=== PATIENT | female | born 1965 | race Caucasian/White ===

== ENCOUNTER 2017-11-25 10:00 | Outpatient (CLI) | payer OTHER | END 2017-11-25 10:01 | disposition home or self-care (01) | LOC: BICRAD 10:00 | PROVIDERS: ATTEND Internal Medicine | DX: Z02.71 Encounter for disability determination (principal); I51.7 Cardiomegaly; Z96.652 Presence of left artificial knee joint | CPT/HCPCS: 71046 ==

== ENCOUNTER 2019-03-14 04:35 | Inpatient (IN) | payer SELFPAY ==
[2019-03-14] MEDS ORDERED: Clopidogrel Bisulfate 75 MG TAB ONE (05:38)
--- NOTE | 2019-03-14 07:21 | CT ---
CTA CHEST WITH 3D VOLUME RENDERING WITH CONTRAST: CLINICAL HISTORY: A 53-year-old female with acute onset CHF/exacerbation and progressive edema. FINDINGS: No evidence of a significant filling defect of the pulmonary trunk or main pulmonary arteries. Evalu ation of the pulmonary arterial branches, distally, is limited by heterogeneity of contrast bolus due to overlying body wall soft tissues and resultant diminished attenuation of the segmental and subseg mental pulmonary arterial branches, which could obscure small peripheral emboli. There is enlargemen t of the pulmonary trunk and right main pulmonary artery. There is bilateral dependent atelectasis o f the lungs. A noncalcified, 5 mm nodule of the subpleural aspect of the right upper lobe is inciden tally noted. No effusion or pneumothorax. The thoracic aorta is nonaneurysmal. There is evidence o f prior granulomatous disease. The incompletely assessed hyperdensity at the upper abdomen is diffic ult to delineate. This is in the region of the gallbladder fossa and, therefore, could relate to cho lelithiasis, gallbladder wall calcification, or other calcification in this region. Scattered osseou s degenerative changes are present. IMPRESSION: 1. No large, central pulmonary embolus. 2. Incompletely assessed hyperdensity of the upper abdomen, as discussed above. Recommend gallbladd er ultrasound to further characterize. 3. Incidental 5 mm pulmonary nodule, right upper lobe. In the absence of risk factors for malignanc y/metastasis, recommend a 6 to 12 month follow-up CT thorax to confirm size stability. 4. Prominent volume of pulmonary arteries. This can be seen in the setting of pulmonary artery hype rtension. Correlate clinically. CODE LN POS: LUKAS
[2019-03-14] MEDS ORDERED: Calcium Carbonate 500 MG ChewTAB PO PRN (07:48)
[2019-03-14] MEDS ORDERED: Ondansetron PF 4 MG/2 ML Vial IVP PRN (07:48)
[2019-03-14] MEDS ORDERED: Loratadine 10 MG TAB PO PRN (07:48)
[2019-03-14] MEDS ORDERED: Senokot S 8.6-50 MG TAB PO PRN (07:48)
[2019-03-14] MEDS ORDERED: Loperamide HCl 2 MG CAP PO PRN (07:48)
[2019-03-14] MEDS ORDERED: Ondansetron ODT 4 MG TAB PO PRN (07:48)
[2019-03-14] MEDS ORDERED: Cepastat Lozenges 1 LOZ PO PRN (07:48)
[2019-03-14] MEDS ORDERED: Acetaminophen 325 MG TAB PO PRN (07:48)
[2019-03-14] MEDS ORDERED: Bisacodyl 10 MG SUPP PR PRN (07:48)
[2019-03-14] MEDS ORDERED: Diabetic Tussin 200 MG/10 ML UDCUP PO PRN (07:48)
[2019-03-14] MEDS ORDERED: hydrALAZINE 20 MG/ML VIAL SLOW IVP PRN (07:48)
[2019-03-14] MEDS ORDERED: Zolpidem Tartrate 5 MG TAB PO PRN (07:48)
[2019-03-14] MEDS ORDERED: Sodium Chloride 0.65% Nasal 44 ML BOT EA NARE PRN (07:48)
[2019-03-14] MEDS ORDERED: Artificial Tears 18 DROP/0.9 ML EA EYE PRN (07:48)
[2019-03-14] MEDS ORDERED: HYDROcodone/Acetaminophen 5/325 mg Tablet PO PRN (07:48)
[2019-03-14] MEDS ORDERED: Famotidine 20 MG TAB PO SCH (09:00)
[2019-03-14] MEDS ORDERED: Aspirin 325 MG TAB PO SCH (09:00)
[2019-03-14 09:14] LABS: Troponin I Less than 0.010 ng/mL (< 0.028)
[2019-03-14] MEDS ORDERED: ISOVUE-370 76%-LOCM 1 ML ONE (10:03)
[2019-03-14 10:59] LABS: Actual Bicarbonate (HCO3a) 37.3 mEq/L (22-28); Analyzer IN Cardio OR; Base Excess (BEa) 7.5 mEq/L (-2.0 to +3.0); Calcium, Ionized 1.18 mmol/L (1.12-1.30); Carboxyhemoglobin (COHb) 5.3 gm% (0.0-3.0); Hemoglobin (Hb) 14.6 g/dL (12.0-16.0); Potassium - ABG Lab 4.18 mmol/L (3.70-5.30); pH, Arterial 7.29 (7.35-7.45)
[2019-03-14 11:00] LABS: CO2 Tension 78.8 mmHg (35.0-45.0); O2 Tension (PaO2) 56.5 mmHg (80.0-100.0)
[2019-03-14] MEDS ORDERED: Nicotine 21 MG PATCH TD SCH (11:00)
[2019-03-14 11:02] LABS: Puncture Site RRA
--- NOTE | 2019-03-14 11:05 | PDOC.EVN ---
Event Note - Event Note Event Note: please see my H & P, her ABG shows respiratory acidosis with partial compensation, as she is getting lethargy, will transfer to IMCU and start on BIPAP and consult pulmonary
--- NOTE | 2019-03-14 11:57 | HP ---
PRIMARY CARE PHYSICIAN: SIMÓN Cummings REASON FOR ADMISSION: Acute on chronic CHF exacerbation. HISTORY OF PRESENT ILLNESS: A 53-year-old female, who has morbid obesity, who was initially evaluated at [facility]. The patient went there because she was hypoxic. She was having increasing shortness of breath and she was having increasing bilateral lower extremity edema. At [facility], the patient was found with bilateral wheezing. She had significant lower extremity edema. Whenever she was sleeping, her oxygen saturation was dropping in 60s to 70s. The patient also reports that she has weight gain. At [facility], she had Lovenox 1 mg/kg as well as nitroglycerin drip started and Lasix was given. Subsequently, nitroglycerin drip was discontinued in our emergency room. The patient is getting out of breath after walking few steps. She does report orthopnea as well as PND as well as lower extremity edema. The patient was given Lasix, but she ran out of that medication as she was not able to refill that medication for about a month. The patient is continued to smoke and she uses her friend's inhaler whenever she gets out of breath. Her shortness of breath condition is getting worse with exertion as well as lying flat. In our emergency room we witnessed that whenever the patient was sleeping, at that time, her oxygen saturation was dropping. She denies any upper respiratory or lower respiratory symptoms. She denies any fever or chills. She denies any immobilization. REVIEW OF SYSTEMS: CONSTITUTIONAL: Negative for weight loss or gain, ability to conduct usual activities. SKIN: Negative for rash, itching. EYES: Negative for double vision, pain. ENT/MOUTH: Negative for nose bleeding, neck stiffness, pain, tenderness. CARDIOVASCULAR: Negative for palpitations, dyspnea on exertion, orthopnea. RESPIRATORY: Negative for shortness of breath, wheezing, cough, hemoptysis, fever or night sweats. GASTROINTESTINAL: Negative for poor appetite, abdominal pain, heartburn, nausea, vomiting, constipation, or diarrhea. GENITOURINARY: Negative for urgency, frequency, dysuria, nocturia. MUSCULOSKELETAL: Negative for pain, swelling. NEUROLOGIC/PSYCHIATRIC: Negative for anxiety, depression. ALLERGY/IMMUNOLOGIC: Negative for skin rash, bleeding tendency. Please see my HPI for pertinent positives and negatives. All other review of systems reviewed and negative except as mentioned in HPI. PAST MEDICAL HISTORY: Morbid obesity, obesity hypoventilation syndrome, COPD, tobacco abuse disorder, and chronic diastolic heart failure. PAST SURGICAL HISTORY: Bilateral knee replacement, facial surgery due to skin cancer, and tubal ligation. PAST PSYCHIATRIC HISTORY: Reviewed and negative. SOCIAL HISTORY: The patient lives at home. She smokes about 1 pack per day. She denies any alcohol abuse. She denies any other illicit drug abuse. FAMILY HISTORY: No strong family history of premature coronary artery disease, stroke, or cancer. ALLERGIES: PER REPORT, THE PATIENT IS ALLERGIC TO ASPIRIN, BUT THE PATIENT DECLINES. CURRENT HOME MEDICATION: Lisinopril 15 mg p.o. daily. EMERGENCY ROOM COURSE: The patient is given Lovenox 1 mg/kg, nitroglycerin drip was started, which was discontinued and the patient is given Lasix. PHYSICAL EXAMINATION: VITAL SIGNS: Most recent vital signs currently in our emergency room, blood pressure 129/100, pulse 108, respiratory rate 24, temperature 97.9, and saturation 98% on 2 L oxygen. Weight 159 kg. GENERAL: The patient is currently alert, awake, no obvious acute distress. HEENT: Head; normocephalic and atraumatic. Eyes; pupils are round and reactive to light. Extraocular muscle intact. ENT, oropharynx within normal limits. Moist mucous membranes. No oral lesion. No pharyngeal erythema. No exudate. NECK: Supple. Short neck. Difficult to assess JVD. No thyromegaly. No carotid bruit. LUNGS: Obesity limiting examination, but air entry reduced. No obvious rales noted. CARDIAC: S1 and S2 appears regular. No obvious murmur elicited, but obesity limiting examination. ABDOMEN: Morbid obesity limiting examination. No tenderness. No peritoneal sign. No guarding. No rigidity. No rebound. No suprapubic tenderness. BACK: Unremarkable. EXTREMITIES: Upper extremities, passive movement of all joints are normal. Lower extremity, bilateral lower extremity pitting edema noted. Good distal pulsation. SKIN: No skin rash. HEMATOLOGICAL SYSTEM: No lymphadenopathy. NEUROLOGIC: Nonfocal examination. SIGNIFICANT LABORATORY DATA: EKG showing right bundle-branch block pattern, right atrial enlargement. CT angiography showing pulmonary vascular congestion, pulmonary hypertension. No pulmonary embolism. CBC; WBC 8.3, hemoglobin 13.4, and platelet 143. INR 1.1, D-dimer 0.66. BMP; sodium 140, potassium 4.3, chloride 102, carbon dioxide 32, anion gap 10, BUN 12, creatinine 0.71, glucose 127, calcium 9.1, lactic acid 1.0. LFT; AST 18, ALT 25, alkaline phosphatase 73, albumin 3.4. BNP 401. Troponin negative x3. ASSESSMENT AND PLAN: 1. Acute respiratory failure with hypoxia. Most likely, this patient has chronic hypoxia, but now we have confirmed hypoxia while sleep. This patient has morbid obesity and I am suspecting underlying obesity hypoventilation syndrome. This patient will need outpatient sleep study to rule out obesity hypoventilation syndrome. 2. Acute on chronic diastolic heart failure. We have no ejection fraction based on echocardiography in the past, but I am suspecting this patient has predominantly right-sided heart failure from chronic hypoxia from obesity hypoventilation syndrome. We will obtain echocardiography. We will continue to treat with Lasix 40 mg IV b.i.d. We will monitor for any respiratory alkalosis or any metabolic alkalosis. We will repeat labs tomorrow including magnesium, phosphorus, uric acid, and TSH. 3. Elevated carbon dioxide level. I will do ABG. This patient most likely has underlying CO2 retention and metabolic compensation. This patient will need sleep study and she will need outpatient CPAP machine. We will continue with DuoNeb therapy q.6 hourly. 4. Hypertension. We will continue with the lisinopril 10 mg p.o. daily as per home dosage. 5. Tobacco abuse disorder. Smoking cessation counseling given and we will provide nicotine patch daily basis. 6. Chronic obstructive pulmonary disease without exacerbation. Continue DuoNeb therapy and we will also add Dulera 2 puff inhalation b.i.d. 7. Deep venous thrombosis prophylaxis. Lovenox 40 mg subcu daily. 8. Gastrointestinal prophylaxis. Pepcid 20 mg p.o. b.i.d. 9. Code status. The patient is full code. 10. Morbid obesity with BMI 70. The patient is given weight loss education. She is given education about outpatient bariatric surgeon follow up. DISPOSITION PLAN: Based on clinical course, this patient may need oxygen upon discharge. Plan of care discussed with the patient and family member. Job ID: [id number]
[2019-03-14] MEDS ORDERED: Fluconazole 100 MG TAB PO SCH (12:15)
[2019-03-14] MEDS ORDERED: predniSONE 20 MG TAB PO SCH (12:15)
[2019-03-14 12:37] LABS: Troponin I Less than 0.010 ng/mL (< 0.028)
[2019-03-14] MEDS: Furosemide 20 MG/2 ML VIAL SLOW IVP SCH (12:38)
[2019-03-14] MEDS ORDERED: Furosemide 40 MG/4 ML VIAL SLOW IVP SCH (14:00)
--- NOTE | 2019-03-14 14:03 | CON ---
DATE OF CONSULTATION: 03/14/2019 SERVICE: Pulmonary Medicine. REASON FOR CONSULTATION: Respiratory failure. HISTORY OF PRESENT ILLNESS: The patient is a 53-year-old white female with morbid obesity, who presents to the hospital with increasing shortness of breath that came on over a period of 2 to 3 weeks. She also had increasing cough, bringing up yellow sputum. She denies any current fevers, chills, nausea, or vomiting. Because she could not get by at home anymore, she presented to the emergency department. She indicates she has had increasing orthopnea, opting to sleep on 2 pillows recently. She has been waking up gasping and choking in the middle of the night. Her shortness of breath did not resolve for a period of dozens of minutes. She does not have any known lung problems other than carrying a diagnosis of COPD. That being said, no pulmonary function studies are on record. PAST MEDICAL HISTORY: 1. Hypertension. 2. COPD. 3. Heart failure, type not specified. 4. Morbid obesity. 5. Obstructive sleep apnea, not currently diagnosed. PAST SURGICAL HISTORY: 1. Knee replacement, bilateral. 2. Excision of skin cancer from face. 3. Tubal ligation. SOCIAL HISTORY: Denies alcohol or illicit drug use. She uses a pack of cigarettes on a daily basis and has a greater than 30 pack-year history of smoking. FAMILY HISTORY: Noncontributory. ALLERGIES: ASPIRIN. MEDICATIONS: List of her inpatient medications was reviewed. Multiple updates were made at this time. REVIEW OF SYSTEMS: General; head, eyes, ears, nose, and throat; cardiovascular, respiratory, GI, , musculoskeletal, neurologic, and skin are negative, except as mentioned in the HPI. PHYSICAL EXAMINATION: VITAL SIGNS: Afebrile, pulse 77, blood pressure 144/94, respirations 18, saturation 94% on 2 L nasal cannula. GENERAL: The patient is somnolent. She wakes up with an aggressive stimulation comfortably. That being said, it took quite a bit of stimulation to wake her up. HEENT: Normocephalic and atraumatic. Sclerae white. Conjunctivae pink. Oral mucosa is moist without lesions. LUNGS: Decent air entry. There is a prolonged expiratory phase with both rhonchi and crackles present. Expiratory wheezing is noted. HEART: Normal rate and regular. ABDOMEN: Soft, nontender, nondistended. Bowel sounds are positive. MUSCULOSKELETAL: No cyanosis or clubbing. There is bilateral 1+ pitting. There are some chronic stasis changes in the bilateral lower extremities. NEUROLOGIC: Grossly nonfocal. INTEGUMENT: She has multiple areas of rashes in the intertriginous folds. There are some satellite punctate lesions consistent with widespread Coby infection. LABORATORY DATA: WBC 8.3, hemoglobin 13.4, platelets 143,000. INR 1.1. PH of 7.29, pCO2 of 78, pO2 of 56. This corresponds to a saturation of 88% when she was wearing 2 L nasal cannula at the moment. Troponins are negative x3, BNP 410 with no priors for comparison. Lactate is unremarkable. Liver function studies are unremarkable. Basic metabolic profile is unremarkable, except for a bicarb of 32, which is likely her baseline. TSH was checked earlier this year and was 1.2. IMAGING STUDIES: CTA of the chest demonstrates no evidence of pulmonary embolism. A 5 mm right upper lobe pulmonary nodule is present. Dilated pulmonary artery is consistent with pulmonary hypertension. No infiltrating disease is identified. ASSESSMENT: 1. Acute on chronic hypoxic and hypercapnic respiratory failure. 2. Acute bronchitis. 3. Morbid obesity. 4. Obesity hypoventilation syndrome. 5. Obstructive sleep apnea, not currently diagnosed. 6. Acute heart failure, type not specified. DISCUSSION AND PLAN: We will diurese the patient to euvolemia. I will initiate a brief course of steroids, antibiotics, and nebulized medications. We will put her on BiPAP. I titrated the BiPAP at bedside for over 30 minutes. At this point, she is perfectly comfortable and did ask to go to sleep again. We will leave her in the ICU tonight. Once her volume status has improved, we will likely transition her out of the ICU back to the medical unit. Pulmonary/Critical Care will follow in this location. CRITICAL CARE TIME: 30 minutes. Job ID: [id number]
[2019-03-14] MEDS ORDERED: Mometasone/Formoterol 120 PUFF INHALER INH SCH (18:30)
[2019-03-14] MEDS: Cefdinir 300 MG CAP PO SCH (20:06)
[2019-03-14] MEDS: Nystatin Powder 15 GM BOT TOP SCH (20:07)
[2019-03-15 04:00] LABS: #Lymphocytes 1.1 thou/uL (1.20-3.40); #Monocytes 0.6 thou/uL (0.11-0.59); %Basophils 0.1 % (0.0-1.0); %Eosinophils 0.2 % (0.0-10.0); %Monocytes 6.4 % (0.0-10.0); %Neutrophils 80.3 % (42.0-75.0); Hemoglobin 14.3 g/dL (12.0-16.0); Mean Corpuscular HGB CONC 30.1 g/dL (32.0-36.0); Mean Corpuscular Volume 86.3 fL (78.0-98.0); Mean Platelet Volume 10.8 fL (7.4-10.4); Platelet Count 145 thou/uL (130-400); RBC Distribution Width 19.1 % (11.5-14.5); White Blood Cell (WBC) Count 8.7 thou/uL (4.8-10.8)
[2019-03-15 04:25] LABS: ALT (SGPT) 20 U/L (8-55); AST (SGOT) 17 U/L (5-34); Albumin 3.2 g/dL (3.5-5.0); Alkaline Phosphatase 76 U/L (40-150); Anion Gap 10 mmol/L (10-20); BUN (Urea Nitrogen) 16 mg/dL (9.8-20.1); Bilirubin, Total 0.5 mg/dL (0.2-1.2); Calc. Creatinine Clearance 249 mL/min (70-130); Calcium 9.2 mg/dL (7.8-10.44); Carbon Dioxide 34 mmol/L (22-29); Chloride 99 mmol/L (98-107); Estimated GFR-MDRD Greater than 90; Globulin 3.4 g/dL (2.4-3.5); Glucose 110 mg/dL (70-105); Magnesium 2.1 mg/dL (1.6-2.6); Potassium 4.4 mmol/L (3.5-5.1); Protein, Total 6.6 g/dL (6.0-8.3); Sodium 139 mmol/L (136-145); Uric Acid 7.2 mg/dL (2.6-6.0)
[2019-03-15 05:10] VITALS: BMI 66.9
[2019-03-15] MEDS: Furosemide 20 MG/2 ML VIAL SLOW IVP SCH ×2 (05:56→14:26)
[2019-03-15] MEDS: predniSONE 20 MG TAB PO SCH (09:09)
[2019-03-15] MEDS: Fluconazole 100 MG TAB PO SCH (09:09)
[2019-03-15] MEDS: Cefdinir 300 MG CAP PO SCH ×2 (09:09→20:42)
[2019-03-15] MEDS: Lisinopril 10 MG TAB PO SCH (09:09)
[2019-03-15] MEDS: Enoxaparin Sodium 40 MG/0.4 ML SYRINGE SC SCH (09:10)
[2019-03-15] MEDS: Nystatin Powder 15 GM BOT TOP SCH ×2 (09:10→20:42)
--- NOTE | 2019-03-15 10:18 | PDOC.HOSPP ---
- Subjective Subjective: Patient seen and examined. No new complaints. No overnight events - Objective Vital Signs & Weight: Vital Signs (12 hours) Temp Pulse Resp BP Pulse Ox 03/15/19 09:09 122/75 03/15/19 08:00 98.0 F 90 L 03/15/19 07:32 77 16 90 L 03/15/19 05:00 98.1 F 03/15/19 01:00 98.3 F 03/15/19 00:00 92 L 03/14/19 23:16 77 18 96 Weight Admit Weight 344 lb 2.265 oz Weight 354 lb 0.998 oz Most Recent Monitor Data Heart Rate from ECG 78 NIBP 122/75 NIBP BP-Mean 90 Respiration from ECG 14 SpO2 89 I&O: 03/14/19 03/15/19 03/16/19 06:59 06:59 06:59 Intake Total 780 377 Output Total 2730 600 Balance -1950 -223 Result Diagrams: 03/15/19 03:18 03/15/19 03:18 Additional Labs: Accuchecks 03/15/19 03/14/19 07:48 11:17 POC Glucose 115 H 143 H Radiology Reviewed by me: Yes (echo report noted) EKG Reviewed by me: Yes (nsr) ROS - Review of Systems All systems: All other ROS were reviewed and found negative. Constitutional: denies: fever, chills, sweats, weakness, malaise, other Eyes: denies: pain, vision change, conjunctivae inflammation, eyelid inflammation, redness, other ENT: denies: ear pain, ear discharge, nose pain, nose discharge, nose congestion , mouth pain, mouth swelling, throat pain, throat swelling, other Respiratory: denies: cough, dry, shortness of breath, hemoptysis, SOB with excertion, pleuritic pain, sputum, wheezing, other Cardiovascular: reports: edema. denies: chest pain, palpitations, orthopnea, paroxysmal noc. dyspnea, light headedness, other Gastrointestinal: denies: nausea, vomitting, abdominal pain, diarrhea, constipation, melena, hematochezia, other Genitourinary: denies: dysuria, frequency, incontinence, hematuria, retention, other Musculoskeletal: denies: neck pain, shoulder pain, arm pain, back pain, hand pain, leg pain, foot pain, other Skin: denies: rash, lesions, festus, bruising, other - Medication Medications: Active Medications Generic Name Dose Route Start Last Admin Trade Name Freq PRN Reason Stop Dose Admin Albuterol/Ipratropium 3 ml 03/14/19 13:00 03/15/19 07:32 Duoneb NEB 3 ml [id number] ASHOK Administration Cefdinir 300 mg 03/14/19 21:00 03/15/19 09:09 Omnicef PO 03/21/19 21:01 300 mg BID ASHOK Administration Enoxaparin Sodium 40 mg 03/15/19 09:00 03/15/19 09:10 Lovenox SC 40 mg 0900 ASHOK Administration Fluconazole 100 mg 03/15/19 09:00 03/15/19 09:09 Diflucan PO 100 mg DAILY ASHOK Administration Furosemide 20 mg 03/14/19 14:00 03/15/19 05:56 Lasix SLOW IVP 20 mg 0600,1400 ASHOK Administration Lisinopril 10 mg 03/15/19 09:00 03/15/19 09:09 Zestril PO 10 mg DAILY ASHOK Administration Nystatin 1 gm 03/14/19 21:00 03/15/19 09:10 Mycostatin Powder TOP 03/19/19 21:01 1 applic BID ASHOK Administration Prednisone 40 mg 03/15/19 08:00 03/15/19 09:09 Prednisone PO 03/18/19 08:01 40 mg QAM-WM ASHOK Administration - Exam NAD, awake alert Eye: PERRL ENT: normocephalic atraumatic, no oropharyngeal lesions Neck: symmetric Heart: RRR, no murmur, no gallops Respiratory: CTAB, no wheezes, no rales Gastrointestinal: soft, non-tender, non-distended, normal bowel sounds (morbid obesity) Extremities: no cyanosis, no clubbing, 2+ LE edema Skin: normal turgor, no lesions Neurological: CN's grossly intact, normal sensation to touch, no focal deficits Musculoskeletal: normal tone, normal strength Psychiatric: normal affect, normal behavior Hosp A/P (1) Acute respiratory failure with hypoxia and hypercapnia Code(s): J96.01 - ACUTE RESPIRATORY FAILURE WITH HYPOXIA; J96.02 - ACUTE RESPIRATORY FAILURE WITH HYPERCAPNIA Status: Acute (2) COPD exacerbation Code(s): J44.1 - CHRONIC OBSTRUCTIVE PULMONARY DISEASE W (ACUTE) EXACERBATION Status: Acute (3) Hypertension Code(s): I10 - ESSENTIAL (PRIMARY) HYPERTENSION Status: Acute (4) LVH (left ventricular hypertrophy) due to hypertensive disease Code(s): I11.9 - HYPERTENSIVE HEART DISEASE WITHOUT HEART FAILURE Status: Acute (5) Moderate tricuspid regurgitation Code(s): I07.1 - RHEUMATIC TRICUSPID INSUFFICIENCY Status: Acute (6) Pulmonary hypertension Code(s): I27.20 - PULMONARY HYPERTENSION, UNSPECIFIED Status: Acute (7) Right-sided congestive heart failure Code(s): I50.810 - RIGHT HEART FAILURE, UNSPECIFIED Status: Acute (8) Morbid obesity with BMI of 60.0-69.9, adult Code(s): E66.01 - MORBID (SEVERE) OBESITY DUE TO EXCESS CALORIES; Z68.44 - BODY MASS INDEX (BMI) 60.0-69.9, ADULT Status: Chronic (9) Tobacco abuse Code(s): Z72.0 - TOBACCO USE Status: Chronic (10) Obesity hypoventilation syndrome Code(s): E66.2 - MORBID (SEVERE) OBESITY WITH ALVEOLAR HYPOVENTILATION Status : Suspected - Plan old records reviewed/req, continue antibiotics, respiratory therapy today antibiotic changed to PO omnicef steroid changed to PO prednisone continue cpap/bipap duering sleep medication reviewed as below symptomatic treatment outpt sleep study continue diuresis transfer to [facility]
--- NOTE | 2019-03-15 10:34 | PRG ---
DATE OF SERVICE: 03/15/2019 SERVICE: Pulmonary Medicine. INTERVAL HISTORY: The patient is doing outstanding from respiratory standpoint. Breathing comfortably. She has no complaints of nausea or vomiting. She is coughing up a little bit of yellow phlegm. It seems to be breaking up with touch. Her lower extremity swelling has improved, and her breathing has actually much improved. Her mentation has improved dramatically over the last 24 hours. PHYSICAL EXAMINATION: VITAL SIGNS: Afebrile, pulse of 78, blood pressure 122/75, respirations 14, and saturation 97% on 3 L nasal cannula. GENERAL: The patient is awake and alert, in no apparent distress. LUNGS: Much improved air entry. There is still some dependent crackles present. There is not a prolonged expiratory phase, though I do appreciate some wheezing. HEART: Normal rate and regular. ABDOMEN: Soft, nontender, and nondistended. Bowel sounds are positive. MUSCULOSKELETAL: No cyanosis or clubbing. There is trace pitting in the bilateral lower extremities. There is also trace pitting at the pannus. GENITOURINARY: No Ordonez. NEUROLOGIC: Grossly nonfocal. LABORATORY DATA: Comprehensive metabolic profile is unremarkable. Troponin is still unremarkable. BNP is 316. Liver function studies are unremarkable. TSH is normal. IMAGING STUDIES: Echocardiogram demonstrates normal ejection fraction with 1/3 diastolic dysfunction. There are findings consistent with right ventricular overload. Estimated RV pressures are 47. ASSESSMENT: 1. Acute on chronic hypoxic and hypercapnic respiratory failure. 2. Acute bronchitis. 3. Morbid obesity with obesity hypoventilation syndrome. 4. Obstructive sleep apnea, witnessed at bedside, but never undergone a PSG. 5. Acute on chronic diastolic heart failure. 6. Pulmonary hypertension, likely multifactorial. DISCUSSION AND PLAN: The patient is stable for transition out of the ICU to the medical unit. We will continue to diurese her down to euvolemia. We will continue antibiotics, nebulized medications, and steroids. She will need to continue using BiPAP at night while in-house. She is going to work toward getting on Medicaid insurance. That should not be much of an issue because she is on disability. Once she has this, she will talk to her primary care physician about going for a polysomnogram. She understands that her weight is life-threatening at this point. Without significant weight reduction, she will develop progressive respiratory failure, and go on to likely pass away. I discussed this with her today. She is more motivated than she has been previously to restrict calories to promote healthy weight reduction. Job ID: [id number]
[2019-03-16] MEDS: Furosemide 20 MG/2 ML VIAL SLOW IVP SCH ×2 (05:57→14:57)
[2019-03-16] MEDS: Lisinopril 10 MG TAB PO SCH (08:41)
[2019-03-16] MEDS: predniSONE 20 MG TAB PO SCH (08:41)
[2019-03-16] MEDS: Enoxaparin Sodium 40 MG/0.4 ML SYRINGE SC SCH (08:41)
[2019-03-16] MEDS: Cefdinir 300 MG CAP PO SCH ×2 (08:41→20:08)
[2019-03-16] MEDS: Fluconazole 100 MG TAB PO SCH (08:41)
[2019-03-16] MEDS: Nystatin Powder 15 GM BOT TOP SCH ×2 (08:42→20:09)
--- NOTE | 2019-03-16 11:33 | PDOC.HOSPP ---
- Subjective Subjective: Patient seen and examined. No new complaints. No overnight events - Objective Vital Signs & Weight: Vital Signs (12 hours) Temp Pulse Resp BP BP Pulse Ox 03/16/19 08:41 122/75 03/16/19 08:01 73 18 98 03/16/19 08:00 98 03/16/19 07:42 98.3 F 76 16 135/85 89 L 03/16/19 06:08 97.8 F 81 20 147/89 H 90 L 03/16/19 00:40 71 22 H 93 L Weight Admit Weight 344 lb 2.265 oz Weight 354 lb 0.998 oz Most Recent Monitor Data Heart Rate from ECG 78 NIBP 138/94 NIBP BP-Mean 108 Respiration from ECG 14 SpO2 94 I&O: 03/15/19 03/16/19 03/17/19 06:59 06:59 06:59 Intake Total 780 1554 360 Output Total 2730 1240 Balance -1950 314 360 Result Diagrams: 03/15/19 03:18 03/15/19 03:18 EKG Reviewed by me: Yes ROS - Review of Systems All systems: All other ROS were reviewed and found negative. Constitutional: denies: fever, chills, sweats, weakness, malaise, other Eyes: denies: pain, vision change, conjunctivae inflammation, eyelid inflammation, redness, other ENT: denies: ear pain, ear discharge, nose pain, nose discharge, nose congestion , mouth pain, mouth swelling, throat pain, throat swelling, other Respiratory: denies: cough, dry, shortness of breath, hemoptysis, SOB with excertion, pleuritic pain, sputum, wheezing, other Cardiovascular: denies: chest pain, palpitations, orthopnea, paroxysmal noc. dyspnea, edema, light headedness, other Gastrointestinal: denies: nausea, vomitting, abdominal pain, diarrhea, constipation, melena, hematochezia, other Genitourinary: denies: dysuria, frequency, incontinence, hematuria, retention, other Musculoskeletal: denies: neck pain, shoulder pain, arm pain, back pain, hand pain, leg pain, foot pain, other Skin: denies: rash, lesions, festus, bruising, other - Medication Medications: Active Medications Generic Name Dose Route Start Last Admin Trade Name Freq PRN Reason Stop Dose Admin Albuterol/Ipratropium 3 ml 03/14/19 13:00 03/16/19 08:01 Duoneb NEB 3 ml [id number] ASHOK Administration Cefdinir 300 mg 03/14/19 21:00 03/16/19 08:41 Omnicef PO 03/21/19 21:01 300 mg BID ASHOK Administration Enoxaparin Sodium 40 mg 03/15/19 09:00 03/16/19 08:41 Lovenox SC 40 mg 0900 ASHOK Administration Fluconazole 100 mg 03/15/19 09:00 03/16/19 08:41 Diflucan PO 100 mg DAILY ASHOK Administration Furosemide 20 mg 03/14/19 14:00 03/16/19 05:57 Lasix SLOW IVP 20 mg 0600,1400 ASHOK Administration Lisinopril 10 mg 03/15/19 09:00 03/16/19 08:41 Zestril PO 10 mg DAILY ASHOK Administration Nystatin 1 gm 03/14/19 21:00 03/16/19 08:42 Mycostatin Powder TOP 03/19/19 21:01 1 applic BID ASHOK Administration Prednisone 40 mg 03/15/19 08:00 03/16/19 08:41 Prednisone PO 03/18/19 08:01 40 mg QAM-WM ASHOK Administration - Exam NAD, awake alert Eye: PERRL, anicteric sclera ENT: normocephalic atraumatic, no oropharyngeal lesions Neck: supple, symmetric, no JVD Heart: RRR, no murmur, no gallops Respiratory: CTAB, no wheezes, no rales Gastrointestinal: soft, non-tender, non-distended Extremities: no cyanosis, no clubbing, 2+ LE edema Skin: normal turgor, no lesions Neurological: CN's grossly intact, normal sensation to touch, no focal deficits Musculoskeletal: normal tone, normal strength Psychiatric: normal affect, normal behavior Hosp A/P (1) Acute respiratory failure with hypoxia and hypercapnia Code(s): J96.01 - ACUTE RESPIRATORY FAILURE WITH HYPOXIA; J96.02 - ACUTE RESPIRATORY FAILURE WITH HYPERCAPNIA Status: Acute (2) COPD exacerbation Code(s): J44.1 - CHRONIC OBSTRUCTIVE PULMONARY DISEASE W (ACUTE) EXACERBATION Status: Acute (3) Hypertension Code(s): I10 - ESSENTIAL (PRIMARY) HYPERTENSION Status: Acute (4) LVH (left ventricular hypertrophy) due to hypertensive disease Code(s): I11.9 - HYPERTENSIVE HEART DISEASE WITHOUT HEART FAILURE Status: Acute (5) Moderate tricuspid regurgitation Code(s): I07.1 - RHEUMATIC TRICUSPID INSUFFICIENCY Status: Acute (6) Pulmonary hypertension Code(s): I27.20 - PULMONARY HYPERTENSION, UNSPECIFIED Status: Acute (7) Right-sided congestive heart failure Code(s): I50.810 - RIGHT HEART FAILURE, UNSPECIFIED Status: Acute (8) Morbid obesity with BMI of 60.0-69.9, adult Code(s): E66.01 - MORBID (SEVERE) OBESITY DUE TO EXCESS CALORIES; Z68.44 - BODY MASS INDEX (BMI) 60.0-69.9, ADULT Status: Chronic (9) Tobacco abuse Code(s): Z72.0 - TOBACCO USE Status: Chronic (10) Obesity hypoventilation syndrome Code(s): E66.2 - MORBID (SEVERE) OBESITY WITH ALVEOLAR HYPOVENTILATION Status : Suspected - Plan old records reviewed/req, plan discussed w/ family continue diuresis will need home oxygen medication reviewed as below symptomatic treatment
--- NOTE | 2019-03-16 13:44 | PRG ---
DATE OF SERVICE: 03/16/2019 SERVICE: Pulmonary Medicine. INTERVAL HISTORY: The patient is doing quite well from a respiratory standpoint. She is breathing comfortably. She is sleeping. She did not use her BiPAP last night. Otherwise, there has been no interval change to her condition. She is not having much in way of cough or shortness of breath. She is able to walk around the room without difficulty and feels that she is back to baseline. OBJECTIVE: VITAL SIGNS: Afebrile, pulse 73, blood pressure 122/75, respirations 18, saturation 98% on 2 L nasal cannula. HEENT: Normocephalic and atraumatic. Sclerae are white. Conjunctivae are pink. Oral mucosa is moist without lesions. LUNGS: Decent air entry. Dependent crackles are noted. There is not much of a prolonged expiratory phase. No wheezing is appreciated. HEART: Normal rate, regular. ABDOMEN: Soft, nontender, nondistended. Bowel sounds are positive. MUSCULOSKELETAL: No cyanosis or clubbing. There is 1 to 2+ pitting in the bilateral lower extremities. This is significantly improved. NEUROLOGIC: Grossly nonfocal. ASSESSMENT: 1. Acute on chronic hypoxic and hypercapnic respiratory failure. 2. Acute bronchitis, improving. 3. Acute on chronic diastolic heart failure. 4. Morbid obesity with obesity hypoventilation syndrome. 5. Obstructive sleep apnea, witnessed at bedside. 6. Pulmonary hypertension, likely multifactorial. DISCUSSION AND PLAN: The patient is stable for transition out of the hospital. We will continue to diurese her into the outpatient setting until she returns to euvolemia. She will need to get health insurance. Once she secures this, she will be a great candidate for going for a polysomnogram. [facility], she will do well with weight reduction and noninvasive ventilation, particularly while sleeping. At this point, she has no further requirements for inpatient Pulmonary Critical Care opinion, and I will sign off. Please call with additional questions or concerns through time. Job ID: [id number]
[2019-03-17] MEDS: Furosemide 20 MG/2 ML VIAL SLOW IVP SCH ×2 (05:33→13:58)
[2019-03-17 06:08] LABS: Anion Gap 11 mmol/L (10-20); BUN (Urea Nitrogen) 17 mg/dL (9.8-20.1); Calc. Creatinine Clearance 244 mL/min (70-130); Carbon Dioxide 35 mmol/L (22-29); Chloride 97 mmol/L (98-107); Estimated GFR-MDRD Greater than 90; Glucose 95 mg/dL (70-105); Magnesium 2.1 mg/dL (1.6-2.6); Potassium 3.9 mmol/L (3.5-5.1); Sodium 139 mmol/L (136-145)
[2019-03-17 08:26] VITALS: TEMP 97.7
[2019-03-17] MEDS: Lisinopril 10 MG TAB PO SCH (08:43)
[2019-03-17] MEDS: Cefdinir 300 MG CAP PO SCH (08:43)
[2019-03-17] MEDS: Fluconazole 100 MG TAB PO SCH (08:43)
[2019-03-17] MEDS: predniSONE 20 MG TAB PO SCH (08:43)
[2019-03-17] MEDS: Enoxaparin Sodium 40 MG/0.4 ML SYRINGE SC SCH (08:43)
[2019-03-17 08:44] VITALS: BP 122/75
[2019-03-17] MEDS: Nystatin Powder 15 GM BOT TOP SCH (08:44)
--- NOTE | 2019-03-17 11:08 | PDOC.HOSPP ---
- Subjective Subjective: Patient seen and examined. No new complaints. No overnight events - Objective Vital Signs & Weight: Vital Signs (12 hours) Temp Pulse Resp BP BP BP Pulse Ox 03/17/19 08:43 122/75 03/17/19 08:24 97.7 F 72 24 H 131/80 95 03/17/19 08:00 95 03/17/19 07:22 72 16 90 L 03/17/19 04:06 97.9 F 76 18 146/86 H 94 L 03/17/19 01:00 84 21 H 94 L 03/17/19 00:43 73 16 91 L 03/17/19 00:00 98.3 F 73 18 139/87 93 L Weight Admit Weight 344 lb 2.265 oz Weight 347 lb 4.8 oz Most Recent Monitor Data Heart Rate from ECG 78 NIBP 138/94 NIBP BP-Mean 108 Respiration from ECG 14 SpO2 94 I&O: 03/16/19 03/17/19 03/18/19 06:59 06:59 06:59 Intake Total 1554 1177 240 Output Total 1240 Balance 314 1177 240 Result Diagrams: 03/15/19 03:18 03/17/19 05:16 ROS - Review of Systems All systems: All other ROS were reviewed and found negative. Constitutional: denies: fever, chills, sweats, weakness, malaise, other Eyes: denies: pain, vision change, conjunctivae inflammation, eyelid inflammation, redness, other ENT: denies: ear pain, ear discharge, nose pain, nose discharge, nose congestion , mouth pain, mouth swelling, throat pain, throat swelling, other Respiratory: reports: SOB with excertion. denies: cough, dry, shortness of breath, hemoptysis, pleuritic pain, sputum, wheezing, other Cardiovascular: reports: edema. denies: chest pain, palpitations, orthopnea, paroxysmal noc. dyspnea, light headedness, other Gastrointestinal: denies: nausea, vomitting, abdominal pain, diarrhea, constipation, melena, hematochezia, other Genitourinary: denies: dysuria, frequency, incontinence, hematuria, retention, other Musculoskeletal: denies: neck pain, shoulder pain, arm pain, back pain, hand pain, leg pain, foot pain, other Skin: denies: rash, lesions, festus, bruising, other - Medication Medications: Active Medications Generic Name Dose Route Start Last Admin Trade Name Payam PRN Reason Stop Dose Admin Albuterol/Ipratropium 3 ml 03/14/19 13:00 03/17/19 07:22 Duoneb NEB 3 ml [id number] ASHOK Administration Cefdinir 300 mg 03/14/19 21:00 03/17/19 08:43 Omnicef PO 03/21/19 21:01 300 mg BID ASHOK Administration Enoxaparin Sodium 40 mg 03/15/19 09:00 03/17/19 08:43 Lovenox SC 40 mg 0900 ASHOK Administration Fluconazole 100 mg 03/15/19 09:00 03/17/19 08:43 Diflucan PO 03/23/19 09:01 100 mg DAILY ASHOK Administration Furosemide 20 mg 03/14/19 14:00 03/17/19 05:33 Lasix SLOW IVP 20 mg 0600,1400 ASHOK Administration Lisinopril 10 mg 03/15/19 09:00 03/17/19 08:43 Zestril PO 10 mg DAILY ASHOK Administration Nystatin 1 gm 03/14/19 21:00 03/17/19 08:44 Mycostatin Powder TOP 03/19/19 21:01 1 applic BID ASHOK Administration Prednisone 40 mg 03/15/19 08:00 03/17/19 08:43 Prednisone PO 03/18/19 08:01 40 mg QAM-WM ASHOK Administration - Exam NAD, awake alert Eye: PERRL, anicteric sclera ENT: normocephalic atraumatic, no oropharyngeal lesions Neck: supple, symmetric, no JVD Heart: RRR, no murmur, no gallops Respiratory: CTAB, no wheezes, no rales Gastrointestinal: soft, non-tender, non-distended, normal bowel sounds Extremities: no cyanosis, no clubbing, 1+ LE edema Skin: normal turgor, no lesions Neurological: CN's grossly intact, normal sensation to touch, no focal deficits Musculoskeletal: normal tone, normal strength Psychiatric: normal affect, normal behavior Hosp A/P (1) Acute respiratory failure with hypoxia and hypercapnia Code(s): J96.01 - ACUTE RESPIRATORY FAILURE WITH HYPOXIA; J96.02 - ACUTE RESPIRATORY FAILURE WITH HYPERCAPNIA Status: Acute (2) COPD exacerbation Code(s): J44.1 - CHRONIC OBSTRUCTIVE PULMONARY DISEASE W (ACUTE) EXACERBATION Status: Acute (3) Hypertension Code(s): I10 - ESSENTIAL (PRIMARY) HYPERTENSION Status: Acute (4) LVH (left ventricular hypertrophy) due to hypertensive disease Code(s): I11.9 - HYPERTENSIVE HEART DISEASE WITHOUT HEART FAILURE Status: Acute (5) Moderate tricuspid regurgitation Code(s): I07.1 - RHEUMATIC TRICUSPID INSUFFICIENCY Status: Acute (6) Pulmonary hypertension Code(s): I27.20 - PULMONARY HYPERTENSION, UNSPECIFIED Status: Acute (7) Right-sided congestive heart failure Code(s): I50.810 - RIGHT HEART FAILURE, UNSPECIFIED Status: Acute (8) Morbid obesity with BMI of 60.0-69.9, adult Code(s): E66.01 - MORBID (SEVERE) OBESITY DUE TO EXCESS CALORIES; Z68.44 - BODY MASS INDEX (BMI) 60.0-69.9, ADULT Status: Chronic (9) Tobacco abuse Code(s): Z72.0 - TOBACCO USE Status: Chronic (10) Obesity hypoventilation syndrome Code(s): E66.2 - MORBID (SEVERE) OBESITY WITH ALVEOLAR HYPOVENTILATION Status : Suspected - Plan old records reviewed/req, plan discussed w/ family will need home oxygen arrangement she will follow up with pulmonary for sleep study after discharge continue lasix medication reviewed as below symptomatic treatment weight loss and smoking cessation counselling education given
--- NOTE | 2019-03-17 16:09 | DIS ---
DATE OF ADMISSION: 03/14/2019 DATE OF DISCHARGE: 03/17/2019 PRIMARY CARE PHYSICIAN: Stefany Lguo PA-C DISCHARGE DISPOSITION: Home. PRIMARY DISCHARGE DIAGNOSES: Acute respiratory failure with hypoxia and hypercapnia, chronic obstructive pulmonary disease exacerbation, left ventricular hypertrophy with repolarization changes, moderate tricuspid regurgitation, pulmonary hypertension, right-sided heart failure, acute. SECONDARY DISCHARGE DIAGNOSES: Hypertension, morbid obesity with BMI 65, with tobacco abuse disorder, chronic obstructive pulmonary disease. PRIMARY PROCEDURE/OPERATION: None. RADIOLOGICAL INVESTIGATION: CT angiography negative for PE. Echocardiography showed normal EF. SIGNIFICANT LABORATORY DATA: Hemoglobin 14.3. CO2 of 78.8, creatinine 0.67, BNP 316. DISCHARGE MEDICATIONS: 1. Lisinopril 10 mg p.o. daily. 2. Omnicef 300 mg p.o. b.i.d. for 5 days. 3. Diflucan 100 mg p.o. daily for 5 days. 4. Lasix 40 mg p.o. daily. 5. Prednisone 40 mg p.o. daily for 5 days. CONTRAINDICATION: None. CODE STATUS: Full code. INPATIENT DISTRIBUTION AGENT: Dr. Amos. TEST RESULTS PENDING ON DISCHARGE: None. ALLERGIES: ASPIRIN. DISCHARGE PLAN: Posthospital, the patient will follow up with Dr. Amos in 1 week. The patient has appointment with Stefany Lugo PA-C. HOSPITAL COURSE: A 53-year-old female with above-mentioned medical problem, who was admitted by me. Please see my HPI for further details. The patient was having increasing lower extremity edema and shortness of breath. The patient's clinical presentation was consistent with obesity hypoventilation syndrome, right-sided heart failure, and pulmonary hypertension. Echocardiography confirmed that presentation. The patient had code green because she was lethargic from CO2 retention and that is why we transferred her to ICU and BiPAP was tried. The patient was also treated with IV Lasix for right-sided heart failure. She was transferred to medical floor upon stabilization. We provided extensive counseling to avoid smoking and weight loss education given. The patient was requiring home oxygen and that was arranged with help of case sealer. The patient will get Medicaid. At that point, she will go to Dr. Amos's office for outpatient sleep study done to get CPAP machine. The patient is overall stable for discharge today and she will follow up with above-mentioned cruise consultant. Plan of care discussed with the patient in detail. Job ID: [id number]
== END 2019-03-17 15:15 | disposition home or self-care (01) | DRG 291 ==
LOC: ERS 04:35 → ERHOLD 06:30 → 2NO 09:13 → CCU 11:02 → T4-B 03-15 18:21
PROVIDERS: ADMIT Family Medicine; ATTEND Family Medicine
PROC: 5A09457 Assistance with Respiratory Ventilation, 24-96 Consecutive Hours, Continuous Positive Airway Pressure (ICD-10-PCS; principal; 2019-03-14)
DX: I11.0 Hypertensive heart disease with heart failure (principal); J96.01 Acute respiratory failure with hypoxia; J96.02 Acute respiratory failure with hypercapnia; J44.1 Chronic obstructive pulmonary disease with (acute) exacerbation; Z68.44 Body mass index [BMI] 60.0-69.9, adult; E66.2 Morbid (severe) obesity with alveolar hypoventilation; E87.2 Acidosis; I07.1 Rheumatic tricuspid insufficiency; I27.29 Other secondary pulmonary hypertension; I50.811 Acute right heart failure; Z96.653 Presence of artificial knee joint, bilateral; F17.210 Nicotine dependence, cigarettes, uncomplicated; J20.9 Acute bronchitis, unspecified; Z98.51 Tubal ligation status; Z88.8 Allergy status to other drugs, medicaments and biological substances; Z85.828 Personal history of other malignant neoplasm of skin; Z71.6 Tobacco abuse counseling
CPT/HCPCS: 36415; 36416; 71275; 80048; 80053; 82805; 83735; 83880; 84443; 84550; 85025; 93005; 93306; 93798; 94640; 94660; 96360; 96361; J1650; J1940; J7512; J7620; Q9966

== ENCOUNTER 2019-06-11 00:27 | Inpatient (IN) | payer SELFPAY ==
[2019-06-11] MEDS ORDERED: Albuterol Sulfate 2.5 mg/3 ml Neb ONE (01:45)
[2019-06-11] MEDS ORDERED: Albuterol Sulfate 2.5 mg/0.5 ml Neb ONE (01:45)
[2019-06-11] MEDS ORDERED: Bisacodyl 10 MG SUPP PR PRN (10:09)
[2019-06-11] MEDS ORDERED: Acetaminophen 325 MG TAB PO PRN (10:09)
[2019-06-11] MEDS ORDERED: Guaifenesin DM 100-10/5 ML UDCUP PO PRN (10:09)
[2019-06-11 10:29] LABS: Actual Bicarbonate (HCO3a) 41.4 mEq/L (22-28); Base Excess (BEa) 9.4 mEq/L (-2.0 to +3.0); Calcium, Ionized 1.19 mmol/L (1.12-1.30); Carboxyhemoglobin (COHb) 5.7 gm% (0.0-3.0); Hemoglobin (Hb) 15.1 g/dL (12.0-16.0); O2 Tension (PaO2) 66.7 mmHg (80.0-100.0); Potassium - ABG Lab 4.64 mmol/L (3.70-5.30)
[2019-06-11 10:39] LABS: ALV-art Gradient 37.335 (0-20); CO2 Tension 99.3 mmHg (35.0-45.0); Puncture Site L.R.; pH, Arterial 7.24 (7.35-7.45)
[2019-06-11] MEDS ORDERED: Nystatin Powder 15 GM BOT TOP PRN (11:31)
[2019-06-11] MEDS: methylPREDNISolone Sod Succ 40 MG VIAL IVP SCH ×2 (11:50→18:13)
--- NOTE | 2019-06-11 12:41 | HP ---
REASON FOR ADMISSION: Acute respiratory failure with hypoxia, obesity hypoventilation syndrome, possible sleep apnea. HISTORY OF PRESENTING ILLNESS: Please note majority of this history is obtained by ER records and prior medical records as patient is confused and her attention span is limited to few words before she falls asleep. Per patient, she has had shortness of breath for last 2 days. This has been progressively getting worse. She went to [facility] from where she was transferred here. She had complaints of nasal congestion and sore throat as well. The patient also was not taking her Lasix from last month or so as she has not refilled it. She had lower extremity edema with edema on lower part of her belly as well. This morning when I saw the patient, she is more obtunded and was hard to wake up. Even if she did, her attention span was for few words. PAST MEDICAL AND SURGICAL HISTORY: Hypertension, chronic obstructive pulmonary disease with a history of tobacco abuse; history of congestive heart failure, likely diastolic; sleep apnea with no prior sleep study; bilateral knee replacement surgery; skin cancers; tubal ligation. CURRENT MEDICATIONS: Per prior records, the patient is on lisinopril 10 mg daily. ALLERGIES: NO KNOWN DRUG ALLERGIES. PERSONAL HISTORY: She quit smoking two days back and smoked 1 pack a day. Does not abuse alcohol or drugs. She lives with her sister. FAMILY HISTORY: Mother in her 60s. Father in his 70s. He has had history of hypertension. CODE STATUS: Full. This was confirmed with the patient and power of document review attorney is her sister and her children. They are seven of them per patient. REVIEW OF SYSTEMS: Cannot be obtained as the patient is not oriented. PHYSICAL EXAMINATION: GENERAL: The patient is a 53-year-old female, who is currently obtunded. VITAL SIGNS: Blood pressure 160/102, pulse 96 per minute, respiratory rate is 28 per minute, temperature 99 degrees Fahrenheit, and saturating 93% on 2 L nasal cannula. NECK: Supple. No elevated JVD. HEENT: Eyes; extraocular muscles are intact. Pupils are reacting to light. Oral cavity, mucous membranes are dry. No exudates or congestion. CARDIOVASCULAR SYSTEM: S1 and S2 heard, regular rhythm. RESPIRATORY: Air entry 1+ bilateral. Scattered rhonchi plus. Scattered wheezes plus. Distant breath sounds. ABDOMEN: Soft. Bowel sounds heard. No tenderness, rigidity, or guarding. There is edema in the lower abdominal wall. EXTREMITIES: Mild peripheral edema. No calf tenderness. VASCULAR SYSTEM: Peripheral pulses 1+ bilaterally. No ischemic ulcerations or gangrene. CENTRAL NERVOUS SYSTEM: The patient is seen moving all extremities. No gross focal motor deficits noted. PSYCHIATRIC: Cannot be assessed as the patient is obtunded at present. LABORATORY DATA: Chest x-ray done shows pulmonary vascular congestion. Electrolytes are stable. BUN is 11, creatinine 0.7, serum bicarb 33, serum glucose 126. Liver enzymes within normal limits. BNP is 468. Albumin is 3.6. Blood gas done shows a pH of 7.24, pCO2 of 99, PO2 of 66. EKG done shows normal sinus rhythm at 91 beats per minute. There are signs of RBBB seen. CLINICAL IMPRESSION AND PLAN: The patient was initially transferred to [facility] from where she has been moved to critical care unit. She is on BiPAP, will likely get intubated if she does not get better. She will be on DuoNeb q.4 hourly, empiric Levaquin, Solu-Medrol 40 mg IV q.6 hourly, and Lasix 40 mg IV at 6 a.m. and 2 p.m. All other oral medications will be held for now. Pepcid 20 mg IV q.12 hourly. I have discussed her findings with Dr. Peralta. Her overall prognosis is guarded. She is also morbidly obese, weighing nearly 155 kg. She has undiagnosed sleep apnea with likely obesity hypoventilation syndrome contributing to the current issues. I did discuss code status with her after waking her multiple times and she wants everything to be done. Job ID: [id number] [facility]
[2019-06-11] MEDS: Furosemide 40 MG/4 ML VIAL SLOW IVP SCH (14:09)
[2019-06-11 15:50] LABS: Hemoglobin 14.7 g/dL (12.0-16.0); Mean Corpuscular HGB CONC 30.2 g/dL (32.0-36.0); Mean Corpuscular Volume 89.5 fL (78.0-98.0); RBC Distribution Width 20.3 % (11.5-14.5); Red Blood Cell (RBC) Count 5.43 mill/uL (4.20-5.40); White Blood Cell (WBC) Count 8.8 thou/uL (4.8-10.8)
[2019-06-11 15:51] LABS: #Lymphocytes 0.7 thou/uL (1.20-3.40); #Monocytes 0.6 thou/uL (0.11-0.59); #Neutrophils 7.5 thou/uL (1.40-6.50); %Eosinophils 0.1 % (0.0-10.0); %Lymphocytes 8.2 % (21.0-51.0); %Monocytes 6.3 % (0.0-10.0); %Neutrophils 85.4 % (42.0-75.0)
[2019-06-11 16:13] LABS: Large Platelets MODERATE; MDiff Complete? YES; Mean Platelet Volume 12.3 fL (7.4-10.4); Ovalocytes SLIGHT = 2-5 cells (100X) (0-1/hpf); Platelet Clumps SLIGHT; Platelet Morphology Comment PLT clumps seen-LOW; Polychromasia SLIGHT = 2-3 cells (100X) (0-2/hpf); Stomatocytes MODERATE= 6-15 cells (100X) (0-1/hpf); Tear Drops SLIGHT = 2-5 cells (100X) (0-1/hpf)
[2019-06-11 16:27] LABS: ALT (SGPT) 22 U/L (8-55); AST (SGOT) 16 U/L (5-34); Albumin 3.7 g/dL (3.5-5.0); Alkaline Phosphatase 73 U/L (40-110); Anion Gap 16 mmol/L (10-20); BUN (Urea Nitrogen) 16 mg/dL (9.8-20.1); Bilirubin, Total 0.6 mg/dL (0.2-1.2); Calc. Creatinine Clearance 230 mL/min (70-130); Calcium 9.1 mg/dL (7.8-10.44); Carbon Dioxide 32 mmol/L (22-29); Chloride 98 mmol/L (98-107); Estimated GFR-MDRD 86; Globulin 3.6 g/dL (2.4-3.5); Glucose 116 mg/dL (70-105); Protein, Total 7.3 g/dL (6.0-8.3); Sodium 141 mmol/L (136-145)
[2019-06-11] MEDS: Famotidine/PF 20 mg/2ml Vial SLOW IVP SCH (21:16)
[2019-06-11] MEDS: Senokot S 8.6-50 MG TAB PO SCH (21:16)
--- NOTE | 2019-06-12 00:30 | CON ---
DATE OF CONSULTATION: 06/11/2019 SUBJECTIVE: Viviana Carlton is a 53-year-old female, admitted to the observation unit, subsequently transferred to the intermediate care unit and then transferred to the intensive care unit after a blood gas was obtained. She has a history of smoking. She was transferred here for shortness of breath. She denied shortness of breath when I saw her, but also was somnolent. PAST MEDICAL HISTORY: Remarkable for; 1. COPD. 2. Long history of tobacco use ongoing. 3. History of hypertension. 4. History of life-threatening obesity. 5. History of knee replacement. 6. History of skin cancer. 7. History of tubal ligation. She is unable to give a more coherent history. SOCIAL HISTORY: She is pack-a-day smoker all of her life. She does not use drugs or drink according to records. FAMILY HISTORY: Positive for hypertension. Negative for lung disease in early age. REVIEW OF SYSTEMS: Not obtainable. PHYSICAL EXAMINATION: GENERAL: She is a somnolent woman, in no distress. She will open her eyes for about 30 seconds, then close them with questioning. She will follow commands. VITAL SIGNS: Heart rate in the 70s to 80s. Blood pressure was 123/80 when I saw her this morning, respiratory rate was in the teens. HEENT: Pupils are equal. Sclerae anicteric. NECK: Supple. No lymphadenopathy. LUNGS: Remarkable for coarse equal breath sounds. Distant breath sounds. HEART: S1 and S2 are very distant on heart exam. ABDOMEN: Soft, massive. EXTREMITIES: Massive with stasis changes. LABORATORY DATA: White count 8.8, hemoglobin 14.7, platelets are not recorded. Sodium 141, potassium 5, chloride 98, bicarb 32, BUN 16, creatinine 0.7. PH 7.24, CO2 of 99, PO2 of 66. IMPRESSION: Obesity hypoventilation syndrome. She is transferred to critical care, placed on BiPAP. Her exhaled volumes are now by 500 mL with BiPAP, so I am sure blood gas will be better by the morning. It will be imperative that she get a sleep study sometime in the near future. She has life-threatening sleep apnea and life-threatening obesity. Her weight is recorded at 345 pounds and she is only 5 feet 2 inches tall. BMI of 63. CRITICAL CARE TIME: 30 minutes. Job ID: [id number] [facility]
[2019-06-12] MEDS: methylPREDNISolone Sod Succ 40 MG VIAL IVP SCH ×5 (00:35→23:39)
[2019-06-12 04:41] LABS: Anion Gap 12 mmol/L (10-20); BUN (Urea Nitrogen) 20 mg/dL (9.8-20.1); Calc. Creatinine Clearance 247 mL/min (70-130); Calcium 9.1 mg/dL (7.8-10.44); Carbon Dioxide 34 mmol/L (22-29); Chloride 96 mmol/L (98-107); Estimated GFR-MDRD Greater than 90; Glucose 138 mg/dL (70-105); Potassium 4.5 mmol/L (3.5-5.1); Sodium 137 mmol/L (136-145)
[2019-06-12 04:52] LABS: #Lymphocytes 0.7 thou/uL (1.20-3.40); #Monocytes 0.4 thou/uL (0.11-0.59); #Neutrophils 8.2 thou/uL (1.40-6.50); %Basophils 0.5 % (0.0-1.0); %Lymphocytes 7.9 % (21.0-51.0); %Monocytes 4.2 % (0.0-10.0); %Neutrophils 87.4 % (42.0-75.0); Anisocytosis SLIGHT = 6-15 cells (100X) (0-5/hpf); Hemoglobin 13.8 g/dL (12.0-16.0); MDiff Complete? YES; Mean Corpuscular Hemoglobin 25.7 pg (27.0-31.0); Mean Corpuscular Volume 88.8 fL (78.0-98.0); Mean Platelet Volume 11.1 fL (7.4-10.4); Platelet Count 155 thou/uL (130-400); Red Blood Cell (RBC) Count 5.36 mill/uL (4.20-5.40); Stomatocytes SLIGHT = 2-5 cells (100X) (0-1/hpf); White Blood Cell (WBC) Count 9.4 thou/uL (4.8-10.8)
[2019-06-12] MEDS: Furosemide 40 MG/4 ML VIAL SLOW IVP SCH ×2 (07:27→14:30)
[2019-06-12] MEDS: Famotidine/PF 20 mg/2ml Vial SLOW IVP SCH ×2 (08:58→21:43)
[2019-06-12] MEDS: Enoxaparin Sodium 40 MG/0.4 ML SYRINGE SC SCH (08:58)
[2019-06-12] MEDS: Senokot S 8.6-50 MG TAB PO SCH ×3 (08:58→21:53)
[2019-06-12 09:09] LABS: Actual Bicarbonate (HCO3a) 40.9 mEq/L (22-28); Base Excess (BEa) 11.3 mEq/L (-2.0 to +3.0); CO2 Tension 77.7 mmHg (35.0-45.0); Calcium, Ionized 1.18 mmol/L (1.12-1.30); Carboxyhemoglobin (COHb) 3.6 gm% (0.0-3.0); O2 Tension (PaO2) 61.1 mmHg (80.0-100.0); Potassium - ABG Lab 4.29 mmol/L (3.70-5.30); pH, Arterial 7.34 (7.35-7.45)
[2019-06-12 09:10] LABS: ALV-art Gradient 41.415 (0-20); Puncture Site RRA
--- NOTE | 2019-06-12 11:46 | PRG ---
DATE OF SERVICE: 06/12/2019 SUBJECTIVE: Ms. Carlton is much more alert. She want to take the CPAP off. We did that and she was in no distress. Blood gas was repeated this morning on 2 L of oxygen. It is close to her baseline with pH of 7.34, CO2 77, PO2 61. Electrolytes today remarkable only for an elevated bicarb. CBC today shows a white count of 9.4, hemoglobin 13.8, platelets 155. IMPRESSION: 1. Obesity hypoventilation syndrome. 2. Chronic obstructive pulmonary disease. 3. Life-threatening obesity. I explained to her that if she continues to smoke, does not figure out a way to get the money together for sleep study and treatment of her sleep apnea and does not figure out a way to lose weight, she probably will not see 2 more Christmases. We will continue to follow. She is medically stable. She needs to continue to sleep with BiPAP every night. Job ID: [id number]
[2019-06-12 12:53] VITALS: BMI 60.8
--- NOTE | 2019-06-12 14:13 | PDOC.HOSPP ---
- Subjective Encounter Date: 06/12/19 Encounter Time: 09:30 Subjective: more alert and awake, conversing well on nasal canula now - Objective Vital Signs & Weight: Vital Signs (12 hours) Temp Pulse Pulse Pulse Resp BP BP 06/12/19 11:40 76 21 H 06/12/19 09:30 80 74 137/81 153/105 H 06/12/19 08:00 97.8 F 06/12/19 07:54 72 06/12/19 04:00 98.6 F Pulse Ox Pulse Ox Pulse Ox 06/12/19 11:40 06/12/19 09:30 89 L 91 L 06/12/19 08:00 88 L 06/12/19 07:54 06/12/19 04:00 Weight Weight 332 lb 10.841 oz Most Recent Monitor Data Heart Rate from ECG 74 NIBP 160/97 NIBP BP-Mean 118 Respiration from ECG 21 SpO2 90 I&O: 06/11/19 06/12/19 06/13/19 06:59 06:59 06:59 Intake Total 1180 120 Output Total 1900 1750 Balance -720 -1630 Result Diagrams: 06/12/19 04:12 06/12/19 04:12 Hospitalist ROS - Medication Medications: Active Medications Generic Name Dose Route Start Last Admin Trade Name Freq PRN Reason Stop Dose Admin Albuterol/Ipratropium 3 ml 06/11/19 11:00 06/12/19 11:40 Duoneb NEB 3 ml [id number] ASHOK Administration Enoxaparin Sodium 40 mg 06/12/19 09:00 06/12/19 08:58 Lovenox SC 40 mg 0900 ASHOK Administration Famotidine 20 mg 06/11/19 21:00 06/12/19 08:58 Pepcid SLOW IVP 20 mg Q12HR ASHOK Administration Furosemide 40 mg 06/11/19 14:00 06/12/19 07:27 Lasix SLOW IVP 40 mg 0600,1400 ASHOK Administration Levofloxacin 500 mg/ Device 100 mls @ 100 mls/hr 06/11/19 10:30 06/12/19 10: 26 IVPB 100 mls Q24HR ASHOK Administration Methylprednisolone Sodium Succinate 40 mg 06/11/19 12:00 06/12/19 12:44 Solu-Medrol IVP 40 mg Q6HR ASHOK Administration Senna/Docusate Sodium 2 tab 06/11/19 21:00 06/12/19 09:00 Senokot S PO Not Given BID ASHOK - Exam General Appearance: awake alert Eye: PERRL, anicteric sclera ENT: no oropharyngeal lesions, moist mucosa Neck: supple, no JVD Heart: RRR, no murmur Respiratory: no wheezes, no rales, rhonchi Gastrointestinal: soft, non-tender, non-distended, normal bowel sounds Extremities: no cyanosis, 1+ LE edema Neurological: cranial nerve grossly intact, no focal deficits Psychiatric: A&O x 3 Hosp A/P (1) Acute respiratory failure with hypoxia and hypercapnia Code(s): J96.01 - ACUTE RESPIRATORY FAILURE WITH HYPOXIA; J96.02 - ACUTE RESPIRATORY FAILURE WITH HYPERCAPNIA Status: Acute (2) COPD exacerbation Code(s): J44.1 - CHRONIC OBSTRUCTIVE PULMONARY DISEASE W (ACUTE) EXACERBATION Status: Acute (3) Acute exacerbation of CHF (congestive heart failure) Code(s): I50.9 - HEART FAILURE, UNSPECIFIED Status: Acute Qualifiers: Heart failure type: diastolic Qualified Code(s): I50.33 - Acute on chronic diastolic (congestive) heart failure (4) Hypertension Code(s): I10 - ESSENTIAL (PRIMARY) HYPERTENSION Status: Chronic Qualifiers: Hypertension type: essential hypertension Qualified Code(s): I10 - Essential (primary) hypertension (5) Morbid obesity with BMI of 60.0-69.9, adult Code(s): E66.01 - MORBID (SEVERE) OBESITY DUE TO EXCESS CALORIES; Z68.44 - BODY MASS INDEX (BMI) 60.0-69.9, ADULT Status: Chronic (6) Obesity hypoventilation syndrome Code(s): E66.2 - MORBID (SEVERE) OBESITY WITH ALVEOLAR HYPOVENTILATION Status : Chronic - Plan on steroids, nebs, bipap lasix, pepcid, levaquin hemostable has life threatening obesity to mobilize in room as tolerated oral diet
--- NOTE | 2019-06-12 16:28 | CON ---
DATE OF CONSULTATION: 06/12/2019 REASON FOR CONSULTATION: Diastolic failure. HISTORY OF PRESENT ILLNESS: Ms. Carlton is an unfortunate 53-year-old woman with morbid obesity. She has severe sleep apnea and smokes. Consultation was for diastolic heart failure. The patient has a previous history of grade 1 diastolic failure. Echo was performed in February of 2019. LVEF was 60%-65%. She had a flattening in diastole consistent with right ventricular volume overload likely from severe obstructive sleep apnea. She does complain of shortness of breath, which she states is chronic. She denies chest pain, pressure, or other associated symptoms. PAST MEDICAL HISTORY: As above including hypertension, skin cancer, BTL, knee replacement. SOCIAL HISTORY: One [id number] smoker. REVIEW OF SYSTEMS: Ten-point review of systems is reviewed as above, otherwise negative. PHYSICAL EXAMINATION: GENERAL: Patient is a pleasant female, who is in no acute distress. The patient appears their stated age. She is morbidly obese. VITAL SIGNS: Blood pressure 142/109, pulse 72, respirations 20. NEUROLOGIC: The patient is alert and oriented x3 with no focal neurologic deficits. HEENT: Sclerae without icterus. Mouth has moist mucous membranes with normal pallor. NECK: No JVD. Carotid upstroke brisk. No bruits bilaterally. LUNGS: Clear to auscultation with unlabored respirations. BACK: No scoliosis or kyphosis. CARDIAC: Regular rate and rhythm with normal S1 and S2. No S3 or S4 noted. No significant rubs, murmurs, thrills, or gallops noted throughout the precordium. PMI is not displaced. There is no parasternal heave. ABDOMEN: Soft, nontender, nondistended. No peritoneal signs present. No hepatosplenomegaly. No abnormal striae. EXTREMITIES: 2+ femoral and 2+ dorsalis pedis pulses. No cyanosis, clubbing, or edema. SKIN: No gross abnormalities. LABORATORY DATA: Platelet count 155, hemoglobin 13.8. Creatinine 0.66. IMPRESSION: 1. Shortness of breath. 2. Diastolic heart failure. 3. Pickwickian syndrome. 4. Morbid obesity. 5. Tobacco abuse. 6. Severe sleep apnea. RECOMMENDATIONS: At this point, her diastolic failure is the likely contributing the least amount to her current . The patient has morbid obesity with severe sleep apnea and continued tobacco abuse. At this point, we will treat her blood pressure aggressively. She will need an outpatient sleep study. We will need to stop smoking, and we will need to lose weight. I discussed this with Ms. Carlton. She understands, but states she has financial difficulties. I did state she is in control of weight loss in addition to not smoking. Otherwise, from my standpoint, I have no further recommendations. Please re-consult if needed. Job ID: [id number]
[2019-06-13] MEDS: methylPREDNISolone Sod Succ 40 MG VIAL IVP SCH ×3 (05:43→17:55)
[2019-06-13] MEDS: Furosemide 40 MG/4 ML VIAL SLOW IVP SCH ×2 (05:43→15:03)
[2019-06-13] MEDS: Enoxaparin Sodium 40 MG/0.4 ML SYRINGE SC SCH (08:01)
[2019-06-13] MEDS: Senokot S 8.6-50 MG TAB PO SCH ×2 (08:01→21:14)
[2019-06-13] MEDS: Famotidine/PF 20 mg/2ml Vial SLOW IVP SCH ×2 (08:03→21:13)
[2019-06-13 10:20] LABS: #Lymphocytes 0.7 thou/uL (1.20-3.40); #Monocytes 0.3 thou/uL (0.11-0.59); #Neutrophils 9.3 thou/uL (1.40-6.50); %Basophils 0.3 % (0.0-1.0); %Eosinophils 0.1 % (0.0-10.0); %Monocytes 3.1 % (0.0-10.0); %Neutrophils 89.4 % (42.0-75.0); Mean Corpuscular HGB CONC 29.8 g/dL (32.0-36.0); Mean Corpuscular Hemoglobin 26.5 pg (27.0-31.0); Platelet Count 156 thou/uL (130-400); RBC Distribution Width 20.1 % (11.5-14.5); Red Blood Cell (RBC) Count 5.65 mill/uL (4.20-5.40); White Blood Cell (WBC) Count 10.4 thou/uL (4.8-10.8)
[2019-06-13 10:25] LABS: BUN (Urea Nitrogen) 23 mg/dL (9.8-20.1); Calc. Creatinine Clearance 212 mL/min (70-130); Calcium 9.2 mg/dL (7.8-10.44); Estimated GFR-MDRD 82; Glucose 226 mg/dL (70-105)
[2019-06-13 10:34] LABS: Anion Gap 16 mmol/L (10-20); Carbon Dioxide 34 mmol/L (22-29); Chloride 92 mmol/L (98-107); Potassium 4.2 mmol/L (3.5-5.1); Sodium 138 mmol/L (136-145)
[2019-06-13 11:08] LABS: MDiff Complete? YES; Platelet Morphology Comment Appears Adequate; Stomatocytes SLIGHT = 2-5 cells (100X) (0-1/hpf)
[2019-06-13] MEDS: Nicotine 14 MG PATCH TOP SCH (15:37)
--- NOTE | 2019-06-13 16:25 | PDOC.HOSPP ---
- Subjective Encounter Date: 06/13/19 Encounter Time: 12:30 Subjective: is sitting in chair breathing better - Objective Vital Signs & Weight: Vital Signs (12 hours) Temp Pulse Resp Pulse Ox 06/13/19 16:00 97.8 F 06/13/19 15:59 80 18 06/13/19 12:14 72 23 H 97 06/13/19 11:00 97.7 F 06/13/19 08:18 94 L 06/13/19 08:15 69 17 94 L 06/13/19 07:00 98.2 F Weight Weight 332 lb 10.841 oz Most Recent Monitor Data Heart Rate from ECG 75 NIBP 141/82 NIBP BP-Mean 101 Respiration from ECG 17 SpO2 93 I&O: 06/12/19 06/13/19 06/14/19 06:59 06:59 06:59 Intake Total 1180 700 820 Output Total 1900 3150 550 Balance -720 -2450 270 Result Diagrams: 06/13/19 10:02 06/13/19 10:02 Hospitalist ROS - Medication Medications: Active Medications Generic Name Dose Route Start Last Admin Trade Name Freq PRN Reason Stop Dose Admin Albuterol/Ipratropium 3 ml 06/11/19 11:00 06/13/19 15:59 Duoneb NEB 3 ml [id number] ASHOK Administration Enoxaparin Sodium 40 mg 06/12/19 09:00 06/13/19 08:01 Lovenox SC 40 mg 0900 ASHOK Administration Famotidine 20 mg 06/11/19 21:00 06/13/19 08:03 Pepcid SLOW IVP 20 mg Q12HR ASHOK Administration Furosemide 40 mg 06/11/19 14:00 06/13/19 15:03 Lasix SLOW IVP 40 mg 0600,1400 ASHOK Administration Levofloxacin 500 mg/ Device 100 mls @ 100 mls/hr 06/11/19 10:30 06/13/19 11: 14 IVPB 100 mls Q24HR ASHOK Administration Methylprednisolone Sodium Succinate 40 mg 06/11/19 12:00 06/13/19 11:18 Solu-Medrol IVP 40 mg Q6HR ASHOK Administration Nicotine 14 mg 06/13/19 16:00 06/13/19 15:37 Nicoderm Patch TOP Not Given 1600 ASHOK Senna/Docusate Sodium 2 tab 06/11/19 21:00 06/13/19 08:01 Senokot S PO Not Given BID ASHOK - Exam General Appearance: awake alert Eye: PERRL, anicteric sclera ENT: no oropharyngeal lesions, dry oral mucosa Neck: supple, no JVD Heart: RRR, no murmur Respiratory: no wheezes, no rales, rhonchi Gastrointestinal: soft, non-tender, non-distended, normal bowel sounds Gastrointestinal - other findings: abd wall edema+++ Extremities: 1+ LE edema Neurological: cranial nerve grossly intact, no focal deficits Psychiatric: A&O x 3 Hosp A/P (1) Acute respiratory failure with hypoxia and hypercapnia Code(s): J96.01 - ACUTE RESPIRATORY FAILURE WITH HYPOXIA; J96.02 - ACUTE RESPIRATORY FAILURE WITH HYPERCAPNIA Status: Acute (2) COPD exacerbation Code(s): J44.1 - CHRONIC OBSTRUCTIVE PULMONARY DISEASE W (ACUTE) EXACERBATION Status: Acute (3) Acute exacerbation of CHF (congestive heart failure) Code(s): I50.9 - HEART FAILURE, UNSPECIFIED Status: Acute Qualifiers: Heart failure type: diastolic Qualified Code(s): I50.33 - Acute on chronic diastolic (congestive) heart failure (4) Hypertension Code(s): I10 - ESSENTIAL (PRIMARY) HYPERTENSION Status: Chronic Qualifiers: Hypertension type: essential hypertension Qualified Code(s): I10 - Essential (primary) hypertension (5) Morbid obesity with BMI of 60.0-69.9, adult Code(s): E66.01 - MORBID (SEVERE) OBESITY DUE TO EXCESS CALORIES; Z68.44 - BODY MASS INDEX (BMI) 60.0-69.9, ADULT Status: Chronic (6) Obesity hypoventilation syndrome Code(s): E66.2 - MORBID (SEVERE) OBESITY WITH ALVEOLAR HYPOVENTILATION Status : Chronic - Plan on steroids, nebs, levaquin lasix, pepcid hemostable has life threatening obesity to mobilize in room as tolerated oral diet d/w patient about healthy eating, medication compliance and regular exercise to lose weight.
--- NOTE | 2019-06-13 17:22 | PRG ---
DATE OF SERVICE: 06/13/2019 SUBJECTIVE: Viviana Carlton is in no distress. OBJECTIVE: VITAL SIGNS: This morning, she is afebrile, heart rate 80, respiratory rate 18, she is back on room air, blood pressure 141/82. LUNGS: Clear. HEART: Regular rhythm. ABDOMEN: Soft. EXTREMITIES: With stasis changes. LABORATORY DATA: White count 10.4, hemoglobin 15, platelets 156. Sodium 138, potassium 4.2, chloride 92, bicarb 34, BUN 23, creatinine 0.74. IMPRESSION: 1. Life-threatening obesity. 2. Obesity hypoventilation syndrome. 3. Ongoing tobacco use. 4. Probable chronic obstructive pulmonary disease. PLAN: 1. She appears to be clinically improved. 2. She says she has an awareness that she needs to lose weight after I talked yesterday. 3. She tells me she has a daughter at 16, weighs over 400 pounds, so they are going to start losing weight as a family. 4. She still needs to continue with noninvasive ventilatory support at night for her sleep apnea. She is stable to move out of critical care unit in my opinion. Job ID: [id number]
[2019-06-13] MEDS ORDERED: Nicotine 14 MG PATCH TOP SCH (21:00)
[2019-06-14] MEDS: methylPREDNISolone Sod Succ 40 MG VIAL IVP SCH ×3 (00:07→11:54)
[2019-06-14 06:22] LABS: BUN (Urea Nitrogen) 21 mg/dL (9.8-20.1); Calc. Creatinine Clearance 238 mL/min (70-130); Calcium 9.3 mg/dL (7.8-10.44); Estimated GFR-MDRD Greater than 90; Glucose 146 mg/dL (70-105)
[2019-06-14] MEDS: Furosemide 40 MG/4 ML VIAL SLOW IVP SCH ×2 (06:24→15:20)
[2019-06-14 06:30] LABS: Band 2 % (5-11); Hemoglobin 14.8 g/dL (12.0-16.0); Lymphocytes 8 % (21-51); MDiff Complete? YES; Mean Corpuscular HGB CONC 30.8 g/dL (32.0-36.0); Mean Corpuscular Hemoglobin 26.5 pg (27.0-31.0); Mean Platelet Volume 11.4 fL (7.4-10.4); Monocytes 3 % (0-10); Neutrophil 87 % (42-75); Platelet Count 154 thou/uL (130-400); RBC Distribution Width 19.4 % (11.5-14.5); Stomatocytes SLIGHT = 2-5 cells (100X) (0-1/hpf)
[2019-06-14 06:33] LABS: Chloride 90 mmol/L (98-107); Potassium 4.3 mmol/L (3.5-5.1); Sodium 137 mmol/L (136-145)
[2019-06-14 06:36] LABS: Anion Gap 16 mmol/L (10-20); Carbon Dioxide 35 mmol/L (22-29)
[2019-06-14] MEDS: Enoxaparin Sodium 40 MG/0.4 ML SYRINGE SC SCH (08:20)
[2019-06-14] MEDS: Famotidine/PF 20 mg/2ml Vial SLOW IVP SCH ×2 (08:21→20:23)
[2019-06-14] MEDS: Senokot S 8.6-50 MG TAB PO SCH ×2 (08:21→20:24)
[2019-06-14] MEDS: Nicotine 14 MG PATCH TOP SCH (15:20)
--- NOTE | 2019-06-14 15:52 | PRG ---
DATE OF SERVICE: 06/14/2019 SUBJECTIVE: Ms. Carlton says she is feeling better. She has no complaints. She is declining to wear CPAP. OBJECTIVE: VITAL SIGNS: She is afebrile. Heart rate 72, respiratory rate 22, oximetry is 92% on 2 L, blood pressure 156/74. LUNGS: Distant and clear. HEART: Regular rhythm. ABDOMEN: Soft. LABORATORY DATA: White count 10, hemoglobin 14.8, platelets 154. Sodium 137, potassium 4.3, chloride 90, bicarb 35, BUN 21, creatinine 0.66. IMPRESSION: 1. Obesity hypoventilation syndrome. 2. Chronic obstructive pulmonary disease exacerbation. 3. Noncompliance with CPAP use. Again, I emphasized the importance of using CPAP. She says when she gets Medicaid, she will make an appointment to come see me and it will allow us to set her up for a sleep study. Again, discussed smoking cessation. Job ID: [id number]
--- NOTE | 2019-06-14 19:06 | PDOC.HOSPP ---
- Subjective Encounter Date: 06/14/19 Subjective: Pt seen says she feeling better and feeling more energy in herself , Not in distress - Objective Vital Signs & Weight: Vital Signs (12 hours) Temp Pulse Resp BP Pulse Ox 06/14/19 18:52 77 16 89 L 06/14/19 16:32 98.6 F 79 22 H 151/69 H 94 L 06/14/19 14:28 71 18 91 L 06/14/19 12:06 97.4 F L 71 22 H 156/74 H 92 L 06/14/19 10:20 70 20 90 L 06/14/19 08:10 92 L 06/14/19 08:06 98.0 F 78 22 H 156/78 H 92 L 06/14/19 07:28 94 L 06/14/19 07:26 74 20 94 L Weight Weight 332 lb 10.841 oz Most Recent Monitor Data Heart Rate from ECG 75 NIBP 141/82 NIBP BP-Mean 101 Respiration from ECG 17 SpO2 93 I&O: 06/13/19 06/14/19 06/15/19 06:59 06:59 06:59 Intake Total 700 1816 1500 Output Total 3150 550 Balance -2450 1266 1500 Result Diagrams: 06/14/19 05:26 06/14/19 05:26 Hospitalist ROS - Review of Systems Constitutional: denies: fever Eyes: denies: pain ENT: denies: ear pain Respiratory: reports: shortness of breath Cardiovascular: denies: chest pain Gastrointestinal: denies: nausea Genitourinary: denies: dysuria Musculoskeletal: denies: neck pain Neurological: denies: weakness - Medication Medications: Active Medications Generic Name Dose Route Start Last Admin Trade Name Freq PRN Reason Stop Dose Admin Albuterol/Ipratropium 3 ml 06/11/19 11:00 06/14/19 18:52 Duoneb NEB 3 ml [id number] ASHOK Administration Enoxaparin Sodium 40 mg 06/12/19 09:00 06/14/19 08:20 Lovenox SC 40 mg 0900 ASHOK Administration Famotidine 20 mg 06/11/19 21:00 06/14/19 08:21 Pepcid SLOW IVP Not Given Q12HR ASHOK Furosemide 40 mg 06/11/19 14:00 06/14/19 15:20 Lasix SLOW IVP 40 mg 0600,1400 ASHOK Administration Nicotine 14 mg 06/13/19 16:00 06/14/19 15:20 Nicoderm Patch TOP 14 mg 1600 ASHOK Administration Senna/Docusate Sodium 2 tab 06/11/19 21:00 06/14/19 08:21 Senokot S PO Not Given BID ASHOK - Exam General Appearance: awake alert Eye: anicteric sclera ENT: normocephalic atraumatic Neck: supple Heart: no murmur Respiratory: no wheezes, no ronchi Gastrointestinal: soft Extremities: no cyanosis, 1+ LE edema Skin: normal turgor Psychiatric: normal affect Hosp A/P - Plan Acute On chronic respiratory failure with hypoxia and hypercapnia due to possible COPD exacerbation Obesity hypoventilation syndrome Contoinue oxygen nebs and bipap prn needs out ot sleep study Acute exacerbation of CHF (congestive heart failure) Continue lasix monitor fluid status Hypertension Continue monitoring BP Morbid obesity with BMI of 60.0-69.9, adult Pt counceled wt reduction and life style modification DVT/GI Prophyalxis Pt mobilizing well in the room
[2019-06-15 05:41] LABS: #Eosinphils 0.2 thou/uL (0.0-0.7); #Lymphocytes 1.6 thou/uL (1.20-3.40); #Monocytes 0.9 thou/uL (0.11-0.59); #Neutrophils 6.5 thou/uL (1.40-6.50); %Lymphocytes 17.1 % (21.0-51.0); %Monocytes 10.2 % (0.0-10.0); %Neutrophils 70.7 % (42.0-75.0); Hemoglobin 14.5 g/dL (12.0-16.0); Mean Corpuscular HGB CONC 30.6 g/dL (32.0-36.0); Mean Corpuscular Hemoglobin 26.5 pg (27.0-31.0); Mean Corpuscular Volume 86.7 fL (78.0-98.0); Mean Platelet Volume 11.6 fL (7.4-10.4); Platelet Count 133 thou/uL (130-400); RBC Distribution Width 19.6 % (11.5-14.5); Red Blood Cell (RBC) Count 5.45 mill/uL (4.20-5.40); White Blood Cell (WBC) Count 9.2 thou/uL (4.8-10.8)
[2019-06-15 06:14] LABS: Anion Gap 16 mmol/L (10-20); Carbon Dioxide 35 mmol/L (22-29); Chloride 92 mmol/L (98-107); Potassium 4.3 mmol/L (3.5-5.1); Sodium 139 mmol/L (136-145)
[2019-06-15 06:16] LABS: BUN (Urea Nitrogen) 23 mg/dL (9.8-20.1); Calc. Creatinine Clearance 234 mL/min (70-130); Calcium 8.9 mg/dL (7.8-10.44); Estimated GFR-MDRD Greater than 90; Glucose 107 mg/dL (70-105)
[2019-06-15] MEDS: Furosemide 40 MG/4 ML VIAL SLOW IVP SCH ×2 (06:23→14:36)
[2019-06-15] MEDS: predniSONE 20 MG TAB PO SCH (08:17)
[2019-06-15] MEDS: Famotidine/PF 20 mg/2ml Vial SLOW IVP SCH ×2 (08:17→20:17)
[2019-06-15] MEDS: Senokot S 8.6-50 MG TAB PO SCH ×2 (08:17→20:17)
[2019-06-15] MEDS: Enoxaparin Sodium 40 MG/0.4 ML SYRINGE SC SCH (08:18)
[2019-06-15] MEDS: Nicotine 14 MG PATCH TOP SCH (14:41)
--- NOTE | 2019-06-15 15:36 | PDOC.HOSPP ---
- Subjective Encounter Date: 06/15/19 Subjective: Pt seen says she feeling better , SOB getting better however gets low Oxygen on exertion advised to use oxygen , Does not wants IV line says causing her pain and has difficult stick - Objective Vital Signs & Weight: Vital Signs (12 hours) Temp Pulse Resp BP BP Pulse Ox 06/15/19 14:55 90 16 06/15/19 10:57 83 16 90 L 06/15/19 08:00 96 06/15/19 07:28 97.7 F 62 16 156/91 H 96 06/15/19 07:16 79 18 89 L 06/15/19 04:10 98.2 F 68 18 161/94 H 92 L Weight Weight 332 lb 10.841 oz Most Recent Monitor Data Heart Rate from ECG 75 NIBP 141/82 NIBP BP-Mean 101 Respiration from ECG 17 SpO2 93 I&O: 06/14/19 06/15/19 06/16/19 06:59 06:59 06:59 Intake Total 1816 2200 Output Total 550 Balance 1266 2200 Result Diagrams: 06/15/19 05:21 06/15/19 05:21 Hospitalist ROS - Review of Systems Constitutional: denies: fever Eyes: denies: pain ENT: denies: ear pain Respiratory: reports: cough, shortness of breath Cardiovascular: denies: chest pain Gastrointestinal: denies: nausea Genitourinary: denies: dysuria Musculoskeletal: denies: neck pain Skin: denies: rash Neurological: denies: weakness - Medication Medications: Active Medications Generic Name Dose Route Start Last Admin Trade Name Freq PRN Reason Stop Dose Admin Albuterol/Ipratropium 3 ml 06/11/19 11:00 06/15/19 14:55 Duoneb NEB 3 ml [id number] ASHOK Administration Enoxaparin Sodium 40 mg 06/12/19 09:00 06/15/19 08:18 Lovenox SC Not Given 0900 ASHOK Famotidine 20 mg 06/11/19 21:00 06/15/19 08:17 Pepcid SLOW IVP Not Given Q12HR ASHOK Levofloxacin 500 mg 06/15/19 06:00 06/15/19 06:23 Levaquin PO 500 mg 0600 ASHOK Administration Nicotine 14 mg 06/13/19 16:00 06/15/19 14:41 Nicoderm Patch TOP 14 mg 1600 ASHOK Administration Prednisone 40 mg 06/15/19 08:00 06/15/19 08:17 Prednisone PO 40 mg QAM-WM ASHOK Administration Senna/Docusate Sodium 2 tab 06/11/19 21:00 06/15/19 08:17 Senokot S PO Not Given BID ASHOK - Exam General Appearance: awake alert Eye: anicteric sclera ENT: normocephalic atraumatic Neck: supple Heart: no murmur Respiratory: no wheezes Gastrointestinal: non-tender Extremities: no cyanosis Neurological: cranial nerve grossly intact Musculoskeletal: normal tone Psychiatric: normal affect Hosp A/P - Plan Acute On chronic respiratory failure with hypoxia and hypercapnia due to possible COPD exacerbation Obesity hypoventilation syndrome , Gets low SPO2 on exertion , advised to wear oxygen Continue oxygen nebs and bipap prn needs out ot sleep study , Continue incentive spirometry Acute exacerbation of CHF (congestive heart failure) Continue lasix monitor fluid status , changed lasix to po Hypertension Continue monitoring BP added lisinopril home meds Morbid obesity with BMI of 60.0-69.9, adult Pt counceled wt reduction and life style modification DVT/GI Prophyalxis Pt advsie to mobilize possible dc in am
[2019-06-15 19:11] VITALS: TEMP 97.8
--- NOTE | 2019-06-15 20:13 | PRG ---
DATE OF SERVICE: 06/15/2019 OBJECTIVE: VITAL SIGNS: Ms. Carlton is afebrile. Heart rates in the 80s, respiratory rates in the teens, oximetry is 91 to 95 on 2 L. Blood pressure is 167/92 this evening. LUNGS: Clear. HEART: Regular rhythm. ABDOMEN: Soft. EXTREMITIES: Without asymmetry. IMPRESSION: 1. Chronic obstructive pulmonary disease exacerbation. 2. Obstructive sleep apnea with severe obesity hypoventilation syndrome. She says she is eligible to start Medicaid within the next week. She can follow up with me in the office and I will set her up for formal sleep study. She says she feels the best she has felt in many years. She needs a nebulizer at the house as well as ipratropium and albuterol as well as a prednisone taper over the next couple of weeks. I will be happy to see her in the office in 3 to 4 weeks. We will sign off. Job ID: [id number]
[2019-06-16] MEDS: predniSONE 20 MG TAB PO SCH (08:29)
[2019-06-16] MEDS: Furosemide 40 MG TAB PO SCH ×2 (08:30→13:50)
[2019-06-16] MEDS: Famotidine/PF 20 mg/2ml Vial SLOW IVP SCH (08:31)
[2019-06-16] MEDS: Enoxaparin Sodium 40 MG/0.4 ML SYRINGE SC SCH (08:31)
[2019-06-16 08:32] VITALS: BP 166/92
[2019-06-16] MEDS: Senokot S 8.6-50 MG TAB PO SCH (08:32)
[2019-06-16] MEDS ORDERED: Lisinopril 10 MG TAB PO SCH (09:00)
--- NOTE | 2019-06-17 02:15 | DIS ---
DATE OF ADMISSION: 06/11/2019 DATE OF DISCHARGE: 06/16/2019 DISCHARGE DIAGNOSES: 1. Acute on chronic respiratory failure with hypoxia and hypercapnia due to possible chronic obstructive pulmonary disease exacerbation and obesity hypoventilation syndrome, noncompliance with the medication. 2. Acute exacerbation of congestive heart failure, diastolic. 3. Hypertension. 4. Morbid obesity. PHYSICAL EXAMINATION: VITAL SIGNS: Blood pressure 166/92, temperature is 98.6, pulse 90, respiration 20, oxygen saturation 90%. GENERAL: The patient is lying in bed comfortably, not in any distress. HEENT: Conjunctivae normal. Oral mucosa moist. NECK: Supple. No JVD. No lymphadenopathy. CHEST: Normal vesicular breathing. HEART: Sounds normal. ABDOMEN: Soft. EXTREMITIES: Minimal edema of feet positive. LABORATORY DATA: On 06/15/2019, CBC unremarkable. ABGs on 06/11/2019, 7.24, 99, 66. Repeat ABG 7.34, 77, 61. BMP unremarkable on 06/15/2019. X-ray on 06/10/2019, CHF. HOSPITAL SUMMARY: The patient, Brandt Panda, known case of COPD on home oxygen and chronic diastolic congestive heart failure, noncompliance with the medication and possible obesity hypoventilation syndrome, presented with worsening shortness of breath. The patient had hypoxia and hypercapnia, the patient was admitted to ICU. The patient's symptoms improved. The patient also treated with diuretics and patient saturating well on baseline. The patient, however, has obesity hypoventilation syndrome. Her symptoms get worse during nighttime while sleeping. The patient advised to have sleep study outpatient. The patient is currently at her baseline. However, the patient most of the time not wearing oxygen. The patient advised to keep using oxygen. Also, the patient active and mobilized, being discharged home and given prescription for nebulizer machine and nebs, and diuretics. The patient advised to continue home blood pressure medication, being discharged in a stable condition. Job ID: [id number]
== END 2019-06-16 15:40 | disposition home or self-care (01) | DRG 291 ==
LOC: ERS 00:27 → OBSVTOIN 00:55 → 2SW 00:55 → IMCU/EMU 10:17 → CCU 11:30 → T4-B 06-13 16:58
PROVIDERS: ADMIT Internal Medicine; ATTEND Internal Medicine
PROC: 5A09357 Assistance with Respiratory Ventilation, Less than 24 Consecutive Hours, Continuous Positive Airway Pressure (ICD-10-PCS; principal; 2019-06-11)
DX: I11.0 Hypertensive heart disease with heart failure (principal); J96.21 Acute and chronic respiratory failure with hypoxia; J96.22 Acute and chronic respiratory failure with hypercapnia; E66.2 Morbid (severe) obesity with alveolar hypoventilation; J44.1 Chronic obstructive pulmonary disease with (acute) exacerbation; Z68.44 Body mass index [BMI] 60.0-69.9, adult; F17.200 Nicotine dependence, unspecified, uncomplicated; I50.33 Acute on chronic diastolic (congestive) heart failure; Z96.659 Presence of unspecified artificial knee joint; Z88.8 Allergy status to other drugs, medicaments and biological substances; Z79.899 Other long term (current) drug therapy; Z85.828 Personal history of other malignant neoplasm of skin; Z99.81 Dependence on supplemental oxygen
CPT/HCPCS: 36415; 36416; 80048; 80053; 82805; 85025; 93798; 94640; 94660; J1650; J1940; J1956; J2920; J7512; J7611; J7620; S0028